=== PATIENT | female | born 1945 | race Caucasian/White ===

== ENCOUNTER 2021-01-31 00:49 | Inpatient (IN) | payer MEDICARE, BC ==
[~2021-01-31] VITALS: Ht 160 cm; Wt 68.9 kg
[2021-01-31] MEDS ORDERED: MAG HYDROX/AL HYDROX/SIMETH 30 ML UDC PO PRN (02:00)
[2021-01-31] MEDS ORDERED: MAGNESIUM HYDROXIDE 30 ML UDC PO PRN (02:00)
[2021-01-31] MEDS ORDERED: BLOOD SUGAR DIAGNOSTIC 1 EACH STRIP IN ONE (02:00)
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
[2021-01-31 02:03] VITALS: BP 150/90
--- NOTE | 2021-01-31 02:05 | NUR ---
RN NOTE PATIENT'S BLOOD SUGAR WAS 84 MG/DL. OFFERED ORANGE JUICE & JELLO, PATIENT TOLERATED WELL. PATIENT IS SLEEPING COMFORTABLY AT THIS TIME. WILL CONTINUE TO MONITOR.
[2021-01-31] MEDS ORDERED: ASPI-1169 PO (02:11)
[2021-01-31] MEDS ORDERED: LORA-259 PO (02:12)
[2021-01-31] MEDS ORDERED: ESCI10TA PO (02:22)
[2021-01-31] MEDS ORDERED: CHOL400T11 PO (02:22)
[2021-01-31] MEDS ORDERED: SPIR25TA6 PO (02:22)
[2021-01-31] MEDS ORDERED: ACET-2605 PO (02:22)
[2021-01-31] MEDS ORDERED: CYAN-51 PO (02:22)
[2021-01-31] MEDS ORDERED: PANT40TA49 PO (02:22)
[2021-01-31] MEDS ORDERED: QUET25TA PO (02:22)
[2021-01-31] MEDS ORDERED: CARV6.252 PO (02:22)
[2021-01-31] MEDS ORDERED: OLMESARTAN PO (02:22)
--- NOTE | 2021-01-31 03:26 | NUR ---
RN NOTE PATIENT IS SLEEPING COMFORTABLY AT THIS TIME. WILL CONTINUE TO MONITOR.
--- NOTE | 2021-01-31 05:54 | NUR ---
RN NOTE: DTR JANES CALLED PATIENT'S DTR JANES CALLED TO GET AN UPDATE. PER DTR JANES, PT. IS A RETIRED NURSE EDUCATOR, REFUSES MEDS, WANTS TO KNOW NAME & DOSE OF EACH MEDICINE, BILATERAL EAR HARD OF HEARING, REFUSES TO WEAR HEARING AIDS, VISION DECLINED, USES WALKER, UNSTEADY, FALL RISK. PER DTR, PATIENT WAS ADMITTED AT [facility] FOR FEW DAYS & DTR TOOK HER BACK HOME AFTER PT. WAS DISCHARGED BUT PT. GOT AGGRESSIVE, AGITATED, HITTING, KICKING AT HOME, FAMILY & INTERNATIONAL SALES MANAGER WAS UNABLE TO PROVIDE CARE TO THE PATIENT DUE TO HER BEHAVIOR. PATIENT WAS TAKEN TO [facility] & THEN TRANSFERRED TO [facility]. PATIENT IS SLEEPING COMFORTABLY AT THIS TIME.
--- NOTE | 2021-01-31 05:59 | NUR ---
RN NOTE: REFUSED MRSA SWAB PATIENT REFUSED MRSA SWAB DESPITE OF RISK & BENEFIT EXPLANATIONS.
[2021-01-31 07:30] LABS: BASOPHILS % (AUTO) 0.5 % (0.0-2.0); HEMATOCRIT 41 % (33-45); HEMOGLOBIN 13.6 g/dL (11.5-14.8); LYMPHOCYTES # (AUTO) 2.6 K/uL (0.8-4.8); LYMPHOCYTES % (AUTO) 31.7 % (20.0-44.0); MEAN CORPUSCULAR HGB CONC 34 g/dl (31.0-36.0); MEAN CORPUSCULAR VOLUME 90 fL (82-100); MONOCYTES # (AUTO) 0.5 K/uL (0.1-1.30); MONOCYTES % (AUTO) 5.7 % (2.0-12.0); NEUTROPHILS # (AUTO) 4.9 K/uL (1.8-8.9); NEUTROPHILS % (AUTO) 60.1 % (43.0-81.0); PLATELET COUNT (AUTO) 182 K/uL (150-450); RED BLOOD CELL COUNT(AUTO) 4.54 MIL/uL (4.0-5.2); WHITE BLOOD COUNT (AUTO) 8.1 K/uL (4.3-11.0)
[2021-01-31 07:44] LABS: CARBON DIOXIDE 23 mmol/L (21-32); CHLORIDE 108 mmol/L (98-107); CHOLESTEROL 217 mg/dL (<200); CREATININE 1.4 mg/dL (0.6-1.3); GLUCOSE 104 mg/dL (74-106); HDL CHOLESTEROL 38 mg/dL (40-60); LDL 152 mg/dL (0-99); POTASSIUM 3.8 mmol/L (3.5-5.1); SODIUM SERUM 141 mmol/L (136-145); TRIGLYCERIDES 123 mg/dL (30-150); UREA NITROGEN, BLOOD 33 mg/dL (7-18)
[2021-01-31 08:00] VITALS: BP 134/88
[2021-01-31 08:48] LABS: ALANINE AMINOTRANSFERASE 21 U/L (12-78); ALBUMIN 3.8 g/dL (3.4-5.0); ALKALINE PHOSPHATASE 61 U/L (46-116); ASPARTATE AMINOTRANSFERASE 25 U/L (15-37); BILIRUBIN,TOTAL 0.8 mg/dL (0.2-1.0)
[2021-01-31 08:53] LABS: CALCIUM, SERUM 10.6 mg/dL (8.5-10.1)
[2021-01-31] MEDS ORDERED: OLMESARTAN 20 MG PO SCH (09:00)
[2021-01-31] MEDS: ASPIRIN 81 MG TAB.CHEW PO SCH (11:28)
[2021-01-31] MEDS: CHOLECALCIFEROL (VITAMIN D 3) 400 UNIT TABLET PO SCH (11:28)
[2021-01-31] MEDS: CYANOCOBALAMIN 500 MCG TABLET PO SCH (11:28)
[2021-01-31] MEDS: PANTOPRAZOLE 40 MG TABLET.DR PO SCH (11:29)
[2021-01-31] MEDS: LOSARTAN POTASSIUM 50 MG TABLET PO SCH (11:29)
[2021-01-31] MEDS: CARVEDILOL 6.25 MG TABLET PO SCH ×2 (11:38→17:41)
[2021-01-31] MEDS: SPIRONOLACTONE 25 MG TABLET PO SCH (11:38)
[2021-01-31 16:00] VITALS: BP 128/78
--- NOTE | 2021-01-31 17:55 | NUR ---
GPS/RN it is ok for pt's son Jonathan Flynn [phone] to visit his mother at [facility] on monday02-01-21 off visiting hours in AM. Salma TOVARproduction supervisor trainee approved as well
[2021-01-31 20:00] VITALS: BP 99/55
[2021-01-31] MEDS: TEMAZEPAM 7.5 MG CAPSULE PO PRN (22:13)
--- NOTE | 2021-01-31 22:22 | NUR ---
GPS RN NOTES: RESTORIL 7.5MG/1CAP GIVEN PO AT 2213.
[2021-02-01 07:51] LABS: BASOPHILS % (AUTO) 0.5 % (0.0-2.0); EOSINOPHILS % (AUTO) 1.5 % (0.0-6.0); HEMATOCRIT 38 % (33-45); HEMOGLOBIN 12.5 g/dL (11.5-14.8); LYMPHOCYTES # (AUTO) 2.5 K/uL (0.8-4.8); LYMPHOCYTES % (AUTO) 27.8 % (20.0-44.0); MEAN CORPUSCULAR HGB CONC 33 g/dl (31.0-36.0); MEAN CORPUSCULAR VOLUME 90 fL (82-100); MONOCYTES # (AUTO) 0.8 K/uL (0.1-1.30); NEUTROPHILS # (AUTO) 5.5 K/uL (1.8-8.9); NEUTROPHILS % (AUTO) 61.2 % (43.0-81.0); PLATELET COUNT (AUTO) 159 K/uL (150-450); RED BLOOD CELL COUNT(AUTO) 4.23 MIL/uL (4.0-5.2); WHITE BLOOD COUNT (AUTO) 9.1 K/uL (4.3-11.0)
[2021-02-01 08:00] VITALS: BP 156/96
[2021-02-01 08:10] LABS: ALANINE AMINOTRANSFERASE 22 U/L (12-78); ALBUMIN 3.9 g/dL (3.4-5.0); ALKALINE PHOSPHATASE 60 U/L (46-116); ASPARTATE AMINOTRANSFERASE 19 U/L (15-37); BILIRUBIN,TOTAL 0.7 mg/dL (0.2-1.0); CALCIUM, SERUM 10.8 mg/dL (8.5-10.1); CARBON DIOXIDE 26 mmol/L (21-32); CHLORIDE 107 mmol/L (98-107); CREATININE 2.1 mg/dL (0.6-1.3); GLUCOSE 109 mg/dL (74-106); MAGNESIUM 2.1 mg/dL (1.8-2.4); PHOSPHORUS 2.6 mg/dL (2.5-4.9); POTASSIUM 3.9 mmol/L (3.5-5.1); SODIUM SERUM 142 mmol/L (136-145); TOTAL PROTEIN, SERUM 6.9 g/dL (6.4-8.2); UREA NITROGEN, BLOOD 45 mg/dL (7-18)
[2021-02-01] MEDS: ASPIRIN 81 MG TAB.CHEW PO SCH (08:14)
[2021-02-01] MEDS: PANTOPRAZOLE 40 MG TABLET.DR PO SCH (08:15)
[2021-02-01] MEDS: LOSARTAN POTASSIUM 50 MG TABLET PO SCH (08:15)
[2021-02-01] MEDS: CARVEDILOL 6.25 MG TABLET PO SCH ×2 (08:15→16:45)
[2021-02-01] MEDS: SPIRONOLACTONE 25 MG TABLET PO SCH (08:15)
[2021-02-01] MEDS: CYANOCOBALAMIN 500 MCG TABLET PO SCH (08:15)
[2021-02-01] MEDS: CHOLECALCIFEROL (VITAMIN D 3) 400 UNIT TABLET PO SCH (08:15)
[2021-02-01 08:19] LABS: THYROID STIMULATING HORMONE 1.201 uIU/mL (0.358-3.74)
[2021-02-01 16:00] VITALS: BP 118/78
[2021-02-01 20:00] VITALS: BP 141/67
[2021-02-01] MEDS: DIVALPROEX SODIUM 250 MG TABLET.DR PO SCH (21:42)
[2021-02-01] MEDS: QUETIAPINE FUMARATE 25 MG TABLET PO SCH (21:44)
--- NOTE | 2021-02-02 06:46 | NUR ---
GPS RN CLOSING NOTES: PATIENT IS CURRENTLY SLEEPING COMFORTABLY IN BED. PATIENT SLEPT 7HRS THIS SHIFT. PATIENT HAS NO S/S OF DISTRESS AT THIS TIME. RESPIRATION EVEN AND UNLABORED WITH EQUAL RISE AND FALL OF THE CHEST, ON ROOM AIR. ALL PATIENT CARE NEEDS HAVE BEEN MET ANTICIPATED. WILL CONTINUE TO MONITOR AND ENDORSE TO AM SHIFT.
[2021-02-02 07:00] LABS: BASOPHILS % (AUTO) 0.5 % (0.0-2.0); EOSINOPHILS % (AUTO) 1.8 % (0.0-6.0); HEMATOCRIT 38 % (33-45); HEMOGLOBIN 12.3 g/dL (11.5-14.8); LYMPHOCYTES # (AUTO) 2.7 K/uL (0.8-4.8); LYMPHOCYTES % (AUTO) 26.5 % (20.0-44.0); MEAN CORPUSCULAR HGB CONC 33 g/dl (31.0-36.0); MEAN CORPUSCULAR VOLUME 90 fL (82-100); MONOCYTES # (AUTO) 0.7 K/uL (0.1-1.30); MONOCYTES % (AUTO) 7.3 % (2.0-12.0); NEUTROPHILS # (AUTO) 6.4 K/uL (1.8-8.9); NEUTROPHILS % (AUTO) 63.9 % (43.0-81.0); PLATELET COUNT (AUTO) 159 K/uL (150-450); RED BLOOD CELL COUNT(AUTO) 4.17 MIL/uL (4.0-5.2)
[2021-02-02 07:25] LABS: ALANINE AMINOTRANSFERASE 22 U/L (12-78); ALBUMIN 3.8 g/dL (3.4-5.0); ALKALINE PHOSPHATASE 60 U/L (46-116); ASPARTATE AMINOTRANSFERASE 20 U/L (15-37); BILIRUBIN,TOTAL 0.7 mg/dL (0.2-1.0); CALCIUM, SERUM 10.9 mg/dL (8.5-10.1); CARBON DIOXIDE 24 mmol/L (21-32); CHLORIDE 109 mmol/L (98-107); CREATININE 1.7 mg/dL (0.6-1.3); GLUCOSE 96 mg/dL (74-106); POTASSIUM 4.1 mmol/L (3.5-5.1); SODIUM SERUM 142 mmol/L (136-145); TOTAL PROTEIN, SERUM 6.6 g/dL (6.4-8.2); UREA NITROGEN, BLOOD 43 mg/dL (7-18)
[2021-02-02 08:00] VITALS: BP 151/77
[2021-02-02] MEDS: CYANOCOBALAMIN 500 MCG TABLET PO SCH (08:29)
[2021-02-02] MEDS: ASPIRIN 81 MG TAB.CHEW PO SCH (08:29)
[2021-02-02] MEDS: SPIRONOLACTONE 25 MG TABLET PO SCH (08:30)
[2021-02-02] MEDS: CHOLECALCIFEROL (VITAMIN D 3) 400 UNIT TABLET PO SCH (08:30)
[2021-02-02] MEDS: CARVEDILOL 6.25 MG TABLET PO SCH ×2 (08:30→16:53)
[2021-02-02] MEDS: DIVALPROEX SODIUM 250 MG TABLET.DR PO SCH ×2 (08:30→21:41)
[2021-02-02] MEDS: PANTOPRAZOLE 40 MG TABLET.DR PO SCH (08:34)
[2021-02-02] MEDS: QUETIAPINE FUMARATE 25 MG TABLET PO SCH ×2 (08:34→21:41)
[2021-02-02] MEDS: AMLODIPINE BESYLATE 5 MG TABLET PO SCH (08:34)
--- NOTE | 2021-02-02 08:44 | NUR ---
WOUND CARE CONSULT: PT PRESENTS VERY SLEEPY WITH DRY ABRASION TO LEFT GREAT TOE, PRESENT ON ADMISSION. NO TENDERNESS, ERYTHEMA OR DRAINAGE NOTED TO LEFT GREAT TOE. RECOMMENDATIONS MADE FOR GENERAL SKIN PROTECTION. DISCUSSED WITH NURSING STAFF. MD IN AGREEMENT WITH PLAN OF CARE.
[2021-02-02] MEDS: Z GUARD REMEDY 2 OZ OINT TP SCH (09:21)
[2021-02-02 16:00] VITALS: BP 127/79
[2021-02-02 20:00] VITALS: BP 117/74
[2021-02-03 08:00] VITALS: BP 150/85
[2021-02-03] MEDS: CARVEDILOL 6.25 MG TABLET PO SCH ×3 (09:04→17:00)
[2021-02-03] MEDS: DIVALPROEX SODIUM 250 MG TABLET.DR PO SCH ×2 (09:04→21:37)
[2021-02-03] MEDS: PANTOPRAZOLE 40 MG TABLET.DR PO SCH (09:04)
[2021-02-03] MEDS: AMLODIPINE BESYLATE 5 MG TABLET PO SCH (09:04)
[2021-02-03] MEDS: CHOLECALCIFEROL (VITAMIN D 3) 400 UNIT TABLET PO SCH (09:05)
[2021-02-03] MEDS: QUETIAPINE FUMARATE 25 MG TABLET PO SCH ×2 (09:05→21:37)
[2021-02-03] MEDS: CYANOCOBALAMIN 500 MCG TABLET PO SCH (09:05)
[2021-02-03] MEDS: ASPIRIN 81 MG TAB.CHEW PO SCH (09:05)
[2021-02-03] MEDS: SPIRONOLACTONE 25 MG TABLET PO SCH (09:06)
[2021-02-03] MEDS: Z GUARD REMEDY 2 OZ OINT TP SCH (09:06)
--- NOTE | 2021-02-03 15:00 | NUR ---
Initial Discharge Plan: LEO was able to verify from pt's daughter, Dina Flynn, , that the pt was previously living at [facility] and at [facility], . Pt's daughter requested for pt to be d/c to a memory care facility at the time of d/c. LEO will work with the pt and the MD regarding appropriate discharge planning. LEO will form a safe and proper discharge plan.
--- NOTE | 2021-02-03 15:48 | NUR ---
Facility contact: LEO spoke to director of [facility], Chasity, , and was notified that the pt can be accepted back to the facility if she is not combative and med compliant. LEO will continue to f/u with Chasity for D/C planning.
[2021-02-03 16:05] VITALS: BP 125/74
[2021-02-03] MEDS ORDERED: OLANZAPINE 10 MG VIAL IM STA (16:54)
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
[2021-02-03 20:10] VITALS: BP 129/88
[2021-02-03 20:24] VITALS: BP 129/88
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
[2021-02-04] MEDS: LORAZEPAM 0.5 MG TABLET PO PRN ×2 (01:15→11:21)
--- NOTE | 2021-02-04 01:17 | NUR ---
RN NOTE: ANXIETY PATIENT IS NOTED TO BE ANXIOUS, RESTLESS, AGITATED, COMBATIVE, PARANOID. ATTEMPTING TO STRIKE & KICK STAFF WHEN APPROACHED TO ASSIST HER WITH ADL CARE OR OFFER HER PO INTAKE. PATIENT HAD PUDDING & WATER WITH LOTS OF ENCOURAGEMENT, TOLERATED WELL. PRN ATIVAN 0.5 MG 1 TAB PO ADMINISTERED. WILL CONTINUE TO MONITOR.
[2021-02-04 08:00] VITALS: BP 111/67
[2021-02-04] MEDS: AMLODIPINE BESYLATE 5 MG TABLET PO SCH (08:29)
[2021-02-04] MEDS: CYANOCOBALAMIN 500 MCG TABLET PO SCH (08:29)
[2021-02-04] MEDS: PANTOPRAZOLE 40 MG TABLET.DR PO SCH (08:29)
[2021-02-04] MEDS: DIVALPROEX SODIUM 250 MG TABLET.DR PO SCH ×2 (08:29→21:24)
[2021-02-04] MEDS: CHOLECALCIFEROL (VITAMIN D 3) 400 UNIT TABLET PO SCH (08:30)
[2021-02-04] MEDS: CARVEDILOL 6.25 MG TABLET PO SCH ×2 (08:30→16:19)
[2021-02-04] MEDS: ASPIRIN 81 MG TAB.CHEW PO SCH (08:30)
[2021-02-04] MEDS: SPIRONOLACTONE 25 MG TABLET PO SCH (08:30)
[2021-02-04] MEDS: QUETIAPINE FUMARATE 25 MG TABLET PO SCH ×3 (08:31→21:24)
[2021-02-04] MEDS: CINACALCET HCL 30 MG TABLET PO SCH (08:32)
[2021-02-04] MEDS: Z GUARD REMEDY 2 OZ OINT TP SCH (10:00)
--- NOTE | 2021-02-04 11:21 | NUR ---
Pt. is anxious and agitated and Ativan 0.5 mg po prn given.
[2021-02-04 16:00] VITALS: BP 123/66
[2021-02-04 20:00] VITALS: BP 112/75
[2021-02-05 08:00] VITALS: BP_SYST 109; BP_SYST 143; BP_DIAS 65; BP_DIAS 72
[2021-02-05] MEDS: CINACALCET HCL 30 MG TABLET PO SCH (08:09)
[2021-02-05] MEDS: Z GUARD REMEDY 2 OZ OINT TP SCH (08:10)
[2021-02-05] MEDS: CHOLECALCIFEROL (VITAMIN D 3) 400 UNIT TABLET PO SCH (08:10)
[2021-02-05] MEDS: DIVALPROEX SODIUM 250 MG TABLET.DR PO SCH ×2 (08:10→20:56)
[2021-02-05] MEDS: CYANOCOBALAMIN 500 MCG TABLET PO SCH (08:10)
[2021-02-05] MEDS: ASPIRIN 81 MG TAB.CHEW PO SCH (08:10)
[2021-02-05] MEDS: PANTOPRAZOLE 40 MG TABLET.DR PO SCH (08:10)
[2021-02-05] MEDS: QUETIAPINE FUMARATE 25 MG TABLET PO SCH ×3 (08:12→21:42)
[2021-02-05 08:41] LABS: CARBON DIOXIDE 27 mmol/L (21-32); CHLORIDE 108 mmol/L (98-107); CREATININE 1.6 mg/dL (0.6-1.3); GLUCOSE 104 mg/dL (74-106); POTASSIUM 4.2 mmol/L (3.5-5.1); SODIUM SERUM 143 mmol/L (136-145); UREA NITROGEN, BLOOD 44 mg/dL (7-18)
[2021-02-05 08:48] LABS: CALCIUM, SERUM 10.4 mg/dL (8.5-10.1)
[2021-02-05] MEDS: CARVEDILOL 6.25 MG TABLET PO SCH ×2 (09:00→18:03)
[2021-02-05] MEDS: SPIRONOLACTONE 25 MG TABLET PO SCH (09:00)
[2021-02-05] MEDS: AMLODIPINE BESYLATE 5 MG TABLET PO SCH (09:00)
--- NOTE | 2021-02-05 12:53 | NUR ---
GPS/RN 1300 MEDS NOT ADMINISTERED D/T PT'S EXCESSIVE SLEEPINESS. MADE AWARE
--- NOTE | 2021-02-05 14:03 | NUR ---
Probable cause hearing: Pt.'s 5250 hold was upheld on the grounds of Gravely Disabled.
[2021-02-05 16:00] VITALS: BP 137/87
[2021-02-05 20:03] VITALS: BP_SYST 101; BP_SYST 105; BP_DIAS 52; BP_DIAS 63
[2021-02-06] MEDS: Z GUARD REMEDY 2 OZ OINT TP PRN (06:59)
[2021-02-06 08:00] VITALS: BP 152/77
[2021-02-06] MEDS: AMLODIPINE BESYLATE 5 MG TABLET PO SCH (10:51)
[2021-02-06] MEDS: CARVEDILOL 6.25 MG TABLET PO SCH ×2 (10:51→17:00)
[2021-02-06] MEDS: SPIRONOLACTONE 25 MG TABLET PO SCH (10:51)
[2021-02-06] MEDS: CINACALCET HCL 30 MG TABLET PO SCH (10:52)
[2021-02-06] MEDS: CHOLECALCIFEROL (VITAMIN D 3) 400 UNIT TABLET PO SCH (10:52)
[2021-02-06] MEDS: ASPIRIN 81 MG TAB.CHEW PO SCH (10:52)
[2021-02-06] MEDS: QUETIAPINE FUMARATE 25 MG TABLET PO SCH ×3 (10:52→21:13)
[2021-02-06] MEDS: PANTOPRAZOLE 40 MG TABLET.DR PO SCH (10:52)
[2021-02-06] MEDS: DIVALPROEX SODIUM 250 MG TABLET.DR PO SCH ×2 (10:52→21:13)
[2021-02-06] MEDS: CYANOCOBALAMIN 500 MCG TABLET PO SCH (10:57)
[2021-02-06] MEDS: Z GUARD REMEDY 2 OZ OINT TP SCH (11:56)
[2021-02-06] MEDS: ACETAMINOPHEN 325 MG TABLET PO PRN (13:44)
--- NOTE | 2021-02-06 13:50 | NUR ---
GIVEN TYLENOL FOR GEN'L PAIN.DTR. HERE AND TOOK PHONE NUMBER TO HAVE DR. OSPINA CALL HER.
--- NOTE | 2021-02-06 15:44 | NUR ---
DR. OSPINA INFORMED TO CALL DTR.
[2021-02-06 16:00] VITALS: BP 111/72
[2021-02-06 20:00] VITALS: BP 127/47
[2021-02-06 20:28] VITALS: BP 127/47
--- NOTE | 2021-02-06 22:24 | NUR ---
RN NOTES: -ASLEEP FROM 8PM TO 10PM AT SHORT INTERVALS, THEN SHE WAKE UP TO PEE, ASSISTED BY PATIENT CARE ASSISTANT TO THE BATHROOM, AFTER THAT SNACKS GIVEN,STILL AWAKE, FALL PRECAUTION OBSERVED.
--- NOTE | 2021-02-07 04:41 | NUR ---
RN NOTES: AWAKEN BY ROOM MATES LOUD TALK, SHE IS TRYING TO GET UP FROM THE BED, REDIRECTED AND ENCOURAGE TO LIE DOWN BACK IN BED.FALL AND SAFETY PRECAUTION OBSERVED.
[2021-02-07 08:00] VITALS: BP 154/84
[2021-02-07 08:55] LABS: CALCIUM, SERUM 10.1 mg/dL (8.5-10.1); CARBON DIOXIDE 26 mmol/L (21-32); CHLORIDE 107 mmol/L (98-107); CREATININE 1.8 mg/dL (0.6-1.3); GLUCOSE 93 mg/dL (74-106); POTASSIUM 4.3 mmol/L (3.5-5.1); SODIUM SERUM 140 mmol/L (136-145); UREA NITROGEN, BLOOD 44 mg/dL (7-18)
[2021-02-07] MEDS: QUETIAPINE FUMARATE 25 MG TABLET PO SCH ×2 (09:00→22:13)
[2021-02-07] MEDS: ASPIRIN 81 MG TAB.CHEW PO SCH (09:27)
[2021-02-07] MEDS: SPIRONOLACTONE 25 MG TABLET PO SCH (09:27)
[2021-02-07] MEDS: DIVALPROEX SODIUM 250 MG TABLET.DR PO SCH ×2 (09:28→21:03)
[2021-02-07] MEDS: CARVEDILOL 6.25 MG TABLET PO SCH ×2 (09:28→16:35)
[2021-02-07] MEDS: AMLODIPINE BESYLATE 5 MG TABLET PO SCH (09:29)
[2021-02-07] MEDS: PANTOPRAZOLE 40 MG TABLET.DR PO SCH (09:29)
[2021-02-07] MEDS: CYANOCOBALAMIN 500 MCG TABLET PO SCH (09:29)
[2021-02-07] MEDS: CHOLECALCIFEROL (VITAMIN D 3) 400 UNIT TABLET PO SCH (09:29)
[2021-02-07] MEDS: CINACALCET HCL 30 MG TABLET PO SCH (09:29)
[2021-02-07] MEDS: Z GUARD REMEDY 2 OZ OINT TP SCH (09:31)
[2021-02-07] MEDS: LORAZEPAM 0.5 MG TABLET PO PRN (13:23)
--- NOTE | 2021-02-07 14:22 | NUR ---
[address] VENDOR Notes: Patient was restless in activity room and stated she felt worried and overwhelmed. Offered patient PRN Ativan 0.5 mg ,patient accepted it @ 1323. 1 hour reassess done @ 1423 patient is calm, comfortable , watching T.V in activity room and eating ice cream.
[2021-02-07 16:00] VITALS: BP 143/63
[2021-02-07 20:00] VITALS: BP 128/66
[2021-02-08] MEDS: Z GUARD REMEDY 2 OZ OINT TP PRN ×2 (05:15→08:44)
[2021-02-08 07:43] LABS: CALCIUM, SERUM 9.7 mg/dL (8.5-10.1); CARBON DIOXIDE 26 mmol/L (21-32); CHLORIDE 108 mmol/L (98-107); CREATININE 1.4 mg/dL (0.6-1.3); GLUCOSE 92 mg/dL (74-106); SODIUM SERUM 142 mmol/L (136-145); UREA NITROGEN, BLOOD 36 mg/dL (7-18)
[2021-02-08 08:00] VITALS: BP 134/95
[2021-02-08] MEDS: QUETIAPINE FUMARATE 25 MG TABLET PO SCH ×2 (08:58→21:32)
[2021-02-08] MEDS: CHOLECALCIFEROL (VITAMIN D 3) 400 UNIT TABLET PO SCH (08:58)
[2021-02-08] MEDS: CINACALCET HCL 30 MG TABLET PO SCH (08:58)
[2021-02-08] MEDS: CYANOCOBALAMIN 500 MCG TABLET PO SCH (08:58)
[2021-02-08] MEDS: DIVALPROEX SODIUM 250 MG TABLET.DR PO SCH ×2 (08:58→21:32)
[2021-02-08] MEDS: ASPIRIN 81 MG TAB.CHEW PO SCH (08:58)
[2021-02-08] MEDS: PANTOPRAZOLE 40 MG TABLET.DR PO SCH (08:58)
[2021-02-08] MEDS: SPIRONOLACTONE 25 MG TABLET PO SCH (08:58)
[2021-02-08] MEDS: AMLODIPINE BESYLATE 5 MG TABLET PO SCH (08:59)
[2021-02-08] MEDS: CARVEDILOL 6.25 MG TABLET PO SCH ×2 (08:59→16:43)
[2021-02-08] MEDS: Z GUARD REMEDY 2 OZ OINT TP SCH (09:07)
--- NOTE | 2021-02-08 14:07 | NUR ---
D/C Plan Update: SW notified by pt.'s daughter, Dina Flynn [phone] that [place] [facility] from [facility], feel that the pt. needs higher level of care. Family stated they would like the pt. to be discharged to a memory care unit. Noted. SW will follow up.
--- NOTE | 2021-02-08 14:39 | NUR ---
Memory Care Refferal: LEO faxed clinicals to [facility], [place] [address]; ] FAX: [phone] per pt.'s daughter, Dina Suarez [phone] request.
[2021-02-08 16:00] VITALS: BP 103/71
[2021-02-08 20:00] VITALS: BP 138/94
[2021-02-08] MEDS: TEMAZEPAM 7.5 MG CAPSULE PO PRN (22:39)
--- NOTE | 2021-02-08 22:39 | NUR ---
Patient was given Restoril PRN for sleep, which appears to be effective.
[2021-02-09 08:00] VITALS: BP 133/79
[2021-02-09] MEDS: CYANOCOBALAMIN 500 MCG TABLET PO SCH (08:48)
[2021-02-09] MEDS: SPIRONOLACTONE 25 MG TABLET PO SCH (08:48)
[2021-02-09] MEDS: CARVEDILOL 6.25 MG TABLET PO SCH ×2 (08:49→17:00)
[2021-02-09] MEDS: PANTOPRAZOLE 40 MG TABLET.DR PO SCH (08:49)
[2021-02-09] MEDS: DIVALPROEX SODIUM 250 MG TABLET.DR PO SCH ×2 (08:49→21:13)
[2021-02-09] MEDS: CHOLECALCIFEROL (VITAMIN D 3) 400 UNIT TABLET PO SCH (08:49)
[2021-02-09] MEDS: QUETIAPINE FUMARATE 25 MG TABLET PO SCH ×2 (08:49→21:56)
[2021-02-09] MEDS: AMLODIPINE BESYLATE 5 MG TABLET PO SCH (08:49)
[2021-02-09] MEDS: ASPIRIN 81 MG TAB.CHEW PO SCH (08:49)
[2021-02-09] MEDS: CINACALCET HCL 30 MG TABLET PO SCH (08:49)
[2021-02-09] MEDS: Z GUARD REMEDY 2 OZ OINT TP SCH (08:49)
--- NOTE | 2021-02-09 09:00 | NUR ---
RN NOTE- PT CONFUSED INTERACTIVE ORIENTED TO PERSON ONLY, NEEDS ATTENDED, REDNESS TO SACRAL AREA THOUGH ZGUARD IN USE. WOUND CARE SEEING PT , MED COMPLIANT PO INTAKE GOOD
--- NOTE | 2021-02-09 11:24 | NUR ---
WOUND CARE CONSULT: PT PRESENTS WITH SOME REDNESS/RASH TO GROIN FOLDS AND BILATERAL BUTTOCKS RASH/REDNESS. RECOMMENDATIONS MADE FOR SKIN CARE AND PROTECTION. DISCUSSED WITH NURSING STAFF. MD IN AGREEMENT WITH PLAN OF CARE.
--- NOTE | 2021-02-09 14:30 | NUR ---
D/C Plan Update: LEO notified by pt.'s daughter, Dina Flynn [phone] that she would liek tp to be referred to a Acute Rehab Unit for further Physical therapy. SW will follow up accordingly.
[2021-02-09 16:00] VITALS: BP 114/62
--- NOTE | 2021-02-09 16:40 | NUR ---
Rehab Referrals: Per pt.'s daughter's request, SW faxed referrals to [facility][ [address] [place] [address] tel: FAX: [phone] [facility] [[address] [place] [address] tel: FAX: [phone] [facility] [[address] [facility] [place] [address] TEL: FAX:[phone]
[2021-02-09] MEDS: CLOTRIMAZOLE 1% 15 GM TUBE TP SCH (17:01)
[2021-02-09 20:00] VITALS: BP 121/77
[2021-02-09 20:10] VITALS: BP 121/77
[2021-02-10] MEDS: Z GUARD REMEDY 2 OZ OINT TP PRN (03:24)
[2021-02-10 08:00] VITALS: BP 152/86
[2021-02-10] MEDS: ASPIRIN 81 MG TAB.CHEW PO SCH (09:07)
[2021-02-10] MEDS: CINACALCET HCL 30 MG TABLET PO SCH (09:07)
[2021-02-10] MEDS: DIVALPROEX SODIUM 250 MG TABLET.DR PO SCH ×2 (09:07→21:47)
[2021-02-10] MEDS: QUETIAPINE FUMARATE 25 MG TABLET PO SCH ×2 (09:07→21:48)
[2021-02-10] MEDS: CYANOCOBALAMIN 500 MCG TABLET PO SCH (09:07)
[2021-02-10] MEDS: CARVEDILOL 6.25 MG TABLET PO SCH ×2 (09:07→16:57)
[2021-02-10] MEDS: SPIRONOLACTONE 25 MG TABLET PO SCH (09:08)
[2021-02-10] MEDS: Z GUARD REMEDY 2 OZ OINT TP SCH (09:08)
[2021-02-10] MEDS: AMLODIPINE BESYLATE 5 MG TABLET PO SCH (09:08)
[2021-02-10] MEDS: CHOLECALCIFEROL (VITAMIN D 3) 400 UNIT TABLET PO SCH (09:08)
[2021-02-10] MEDS: PANTOPRAZOLE 40 MG TABLET.DR PO SCH (09:08)
[2021-02-10] MEDS: CLOTRIMAZOLE 1% 15 GM TUBE TP SCH ×2 (09:40→17:10)
[2021-02-10] MEDS: LORAZEPAM 0.5 MG TABLET PO PRN (12:05)
--- NOTE | 2021-02-10 12:06 | NUR ---
RN NOTE: ANXIETY PT EXHIBITING INCREASED ANXIETY AND AGITATION. YELLING, "HELP, HELP". MEDICATED WITH ATIVAN 0.5 MG PO PRN.
[2021-02-10 16:00] VITALS: BP 140/92
--- NOTE | 2021-02-10 16:01 | NUR ---
D/C Plan Update: LEO notified by pt.'s daughter, Dina Flynn [phone] that she visited the rehabs SW referred pt. to and she did not like any of them. Per Dina Uriostegui she would like the pt. to be discharged to [facility] [phone]. Per Dina. the pt. will be seen there by psychiatrist, Dr. Getachew Valderrama [phone] and by the PCP at facility. Noted SW called [facility] unit [phone] and left Ainsley WYATT a voicemail with call back number to arrange discharge date.
[2021-02-10 20:05] VITALS: BP 112/80
[2021-02-11 08:00] VITALS: BP 129/84
[2021-02-11] MEDS: CINACALCET HCL 30 MG TABLET PO SCH (08:15)
[2021-02-11] MEDS: CHOLECALCIFEROL (VITAMIN D 3) 400 UNIT TABLET PO SCH (08:15)
[2021-02-11] MEDS: CARVEDILOL 6.25 MG TABLET PO SCH ×2 (08:15→16:27)
[2021-02-11] MEDS: PANTOPRAZOLE 40 MG TABLET.DR PO SCH (08:15)
[2021-02-11] MEDS: ASPIRIN 81 MG TAB.CHEW PO SCH (08:15)
[2021-02-11] MEDS: DIVALPROEX SODIUM 250 MG TABLET.DR PO SCH ×2 (08:16→09:00)
[2021-02-11] MEDS: QUETIAPINE FUMARATE 25 MG TABLET PO SCH ×2 (08:16→21:07)
[2021-02-11] MEDS: AMLODIPINE BESYLATE 5 MG TABLET PO SCH (08:16)
[2021-02-11] MEDS: CYANOCOBALAMIN 500 MCG TABLET PO SCH (08:16)
[2021-02-11] MEDS: SPIRONOLACTONE 25 MG TABLET PO SCH (08:16)
[2021-02-11] MEDS: LORAZEPAM 0.5 MG TABLET PO PRN (08:52)
--- NOTE | 2021-02-11 09:42 | NUR ---
D/C Planning: LEO called [facility] [[address] [place] [address] ] and spoke to LEO Cervantes [phone] (cell) to discuss referral. Helen stated she and her team will review the pt.'s clinicals and notify SW if they will come assess pt. for possible admission. SW will remain available as needed. Addendum: 02/11/21 at 1137 by JOHN BAILEY Disregard this note- It is for different pt.
[2021-02-11] MEDS: Z GUARD REMEDY 2 OZ OINT TP SCH (09:51)
[2021-02-11] MEDS: CLOTRIMAZOLE 1% 15 GM TUBE TP SCH ×2 (09:52→17:08)
--- NOTE | 2021-02-11 10:52 | NUR ---
Pt. spit the Depakote po and will notify psychiatrist
[2021-02-11 16:00] VITALS: BP 142/70
--- NOTE | 2021-02-11 16:25 | NUR ---
D/C plannin am-SW received call from pt.'s daughter, Dina Flynn [phone] stating that she was notified by [facility] [phone] that they cannot accept the pt. as they feel the pt. needs a higher level of care. Pt.'s daughter stated that she does not feel Seroquel medication is working for the pt. and would like a medication change. SW notified Dr. Walker who stated Dr. Griffin who is covering for Dr. Turpin will adjust the pt.'s medications if needed. 1600-SW educated Dina Dementia is a progressive illness and what that looks like. SW recommended family look into [facility] as they may be equipped to handle behaviors and provide appropriate care for pt. Dina was receptive and stated she will call them. SW will follow up as needed.
[2021-02-11 20:40] VITALS: BP 125/76
[2021-02-11] MEDS: DIVALPROEX SODIUM 125 MG CAP.SPRINK PO SCH (21:06)
[2021-02-12 08:00] VITALS: BP 147/73
[2021-02-12] MEDS: CINACALCET HCL 30 MG TABLET PO SCH (08:11)
[2021-02-12] MEDS: CHOLECALCIFEROL (VITAMIN D 3) 400 UNIT TABLET PO SCH (08:12)
[2021-02-12] MEDS: DIVALPROEX SODIUM 125 MG CAP.SPRINK PO SCH ×2 (08:12→20:41)
[2021-02-12] MEDS: QUETIAPINE FUMARATE 25 MG TABLET PO SCH (08:12)
[2021-02-12] MEDS: PANTOPRAZOLE 40 MG TABLET.DR PO SCH (08:13)
[2021-02-12] MEDS: SPIRONOLACTONE 25 MG TABLET PO SCH (08:13)
[2021-02-12] MEDS: CARVEDILOL 6.25 MG TABLET PO SCH ×2 (08:13→16:33)
[2021-02-12] MEDS: AMLODIPINE BESYLATE 5 MG TABLET PO SCH (08:13)
[2021-02-12] MEDS: ASPIRIN 81 MG TAB.CHEW PO SCH (08:13)
[2021-02-12] MEDS: CYANOCOBALAMIN 500 MCG TABLET PO SCH (08:14)
[2021-02-12] MEDS: CLOTRIMAZOLE 1% 15 GM TUBE TP SCH ×2 (08:34→16:41)
[2021-02-12] MEDS: Z GUARD REMEDY 2 OZ OINT TP SCH (08:34)
--- NOTE | 2021-02-12 11:15 | NUR ---
D/C Planing: LEO got a call from Radha Richmond [phone] from [facility] stating the pt.'s daughter has inquired about possible admission to their facility. Noted. Radha requested clinicals to be faxed to [phone]. Radha stated she would want to come assess the pt. this afternoon or tomorrow morning. LEO notified unit supervisor. Per Radha, if they accept pt. they will require : PCR COVID test Form 602 physician's report
[2021-02-12] MEDS: ACETAMINOPHEN 325 MG TABLET PO PRN ×2 (14:35→22:52)
--- NOTE | 2021-02-12 14:36 | NUR ---
SS Note: SW spoke to pt.'s daughter, Dina Flynn [phone] who stated she is happy to have spoken with Dr. Griffin about adjusting the pt.'s medications accordingly. Dina stated she is hoping [facility] will accept the pt. SW notified her they will assess the pt. this afternoon or tomorrow morning. Dina is agreeable to plan. SW will follow up as needed.
--- NOTE | 2021-02-12 14:40 | NUR ---
RN-NOTES PATIENT C/O HEADACHE AND REQUESTING TYLENOL.TYLENOL 650MG P.O GIVEN PRN ORDER. WILL CONT. MONITORING FOR SAFETY .
[2021-02-12 16:00] VITALS: BP 120/60
[2021-02-12] MEDS: OLANZAPINE 2.5 MG TABLET PO SCH (16:32)
--- NOTE | 2021-02-12 19:21 | NUR ---
RN-NOTES PATIENT IN THE HALLWAY UP IN THE SUKUMAR CHAIR,INTERACTING WITH HER VISITOR.NO ACUTE DISTRESS NOTED. ALL NEEDS ATTENDED AND ANTICIPATED. WILL ENDORSED TO INCOMING NURSE FOR MONITORING AND CONTINUITY OF CARE.
[2021-02-12] MEDS: LORAZEPAM 0.5 MG TABLET PO PRN (21:24)
--- NOTE | 2021-02-12 21:26 | NUR ---
[facility]PS RN NOTES: PATIENT IS ANXIOUS, RESTLESS AND YELLING. REFUSING REDIRECTION. ATIVAN 0.5MG/1TAB GIVEN PO PRN ORDERED AT 2123. WILL CONTINUE TO MONITOR.
[2021-02-12 21:35] VITALS: BP 133/92
[2021-02-12] MEDS: TEMAZEPAM 7.5 MG CAPSULE PO PRN (22:32)
--- NOTE | 2021-02-12 22:32 | NUR ---
GPS RN NOTES: RESTORIL 7.5MG/1CAP GIVEN PO FOR SLEEP AT 2232. WILL CONTINUE TO MONITOR.
--- NOTE | 2021-02-12 22:54 | NUR ---
TYLENOL 650MG GIVEN PO FOR LOWER BACK PAIN AT 2252. WILL CONTINUE TO MONITOR.
[2021-02-13 08:00] VITALS: BP 130/88
[2021-02-13] MEDS: OLANZAPINE 2.5 MG TABLET PO SCH ×2 (08:03→16:48)
[2021-02-13] MEDS: ASPIRIN 81 MG TAB.CHEW PO SCH (08:03)
[2021-02-13] MEDS: CHOLECALCIFEROL (VITAMIN D 3) 400 UNIT TABLET PO SCH (08:04)
[2021-02-13] MEDS: PANTOPRAZOLE 40 MG TABLET.DR PO SCH (08:04)
[2021-02-13] MEDS: DIVALPROEX SODIUM 125 MG CAP.SPRINK PO SCH ×2 (08:04→20:44)
[2021-02-13] MEDS: CYANOCOBALAMIN 500 MCG TABLET PO SCH (08:04)
[2021-02-13] MEDS: CINACALCET HCL 30 MG TABLET PO SCH (08:04)
[2021-02-13] MEDS: CARVEDILOL 6.25 MG TABLET PO SCH ×2 (08:04→16:48)
[2021-02-13] MEDS: SPIRONOLACTONE 25 MG TABLET PO SCH (08:04)
[2021-02-13] MEDS: AMLODIPINE BESYLATE 5 MG TABLET PO SCH (08:05)
[2021-02-13] MEDS: Z GUARD REMEDY 2 OZ OINT TP SCH (08:06)
[2021-02-13] MEDS: CLOTRIMAZOLE 1% 15 GM TUBE TP SCH ×2 (08:06→16:49)
[2021-02-13] MEDS: LORAZEPAM 0.5 MG TABLET PO PRN (10:00)
--- NOTE | 2021-02-13 10:00 | NUR ---
RN-NOTES NOTED PATIENT SCREAMING AND YELLING. STATED" I SEE AN ANIMAL (LEOPARD) HERE". REASSURED ,REDIRECTED AND REORIENTED PATIENT.ATIVAN 0.5MG P.O GIVEN PRN ORDER. WILL CONT. MONITORING FOR SAFETY AND BEHAVIOR.
--- NOTE | 2021-02-13 11:00 | NUR ---
RN-NOTES PATIENT STILL IN THE DAY ROOM,AWAKE,ALERT CALM,NO ACUTE DISTRESS NOTED.
[2021-02-13 16:00] VITALS: BP 122/83
[2021-02-13 20:09] VITALS: BP 107/53
[2021-02-13 20:14] VITALS: BP 107/53
--- NOTE | 2021-02-13 20:27 | NUR ---
RN NOTE PATIENT WAS ASSISTED TO BED AFTER THE BEGINNING OF SPEAR FISHER, PATIENT REMAINED IN BED ONLY FOR 45 MINUTES & ATTEMPTED TO GET OUT OF BED UNASSISTED, TRIED TO ENCOURAGE HER TO STAY IN BED TO REST BUT PATIENT KEPT GETTING OUT OF BED. PATIENT IS VERY CONFUSED 7 UNABLE TO FOLLOW DIRECTIONS AT THIS TIME. ASSISTED PATIENT BACK TO SUKUMAR CHAIR FOR SAFETY & TO PREVENT FALL. WILL CONTINUE TO MONITOR FOR SAFETY & BEHAVIOR.
[2021-02-13] MEDS: Z GUARD REMEDY 2 OZ OINT TP PRN (20:44)
[2021-02-13] MEDS: TEMAZEPAM 7.5 MG CAPSULE PO PRN (22:30)
--- NOTE | 2021-02-13 22:30 | NUR ---
RN NOTE: INSOMNIA PATIENT IS UNABLE TO SLEEP, RESTLESS & ANXIOUS. PRN RESTORIL 7.5 MG 1 CAP PO ADMINISTERED. WILL CONTINUE TO MONITOR.
--- NOTE | 2021-02-14 06:55 | NUR ---
RN NOTE PATIENT SLEPT FOR 5 HOURS & WAS IN & OUT OF HER BED INTERMITTENTLY AT NIGHT. PATIENT IS VERY CONFUSED & FORGETFUL, HIGH FALL RISK, UNABLE TO FOLLOW DIRECTIONS & ATTEMPTS TO GET OUT OF BED UNASSISTED, UNSTEADY. BED ALARM KEPT ON. MONITORED CLOSELY, FREQUENT VISUAL CHECKS. KEPT CLEAN & DRY, Z GUARD APPLIED ORDERED. OFFERED JELLO TO THE PATIENT AT THIS TIME & TOLERATED WELL. WILL ENDORSE TO AM RN FOR CONTINUITY OF CARE.
[2021-02-14 08:00] VITALS: BP 131/81
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
--- NOTE | 2021-02-14 08:35 | NUR ---
RN NOTE PATIENT WAS GETTING AGITATED AND ANXIOUS, PROVIDED A CALM AND SAFE ENVIRONMENT. PATIENT BEGAN TO GET RESTLESS, ADMINISTERED PRN ATIVAN ORDERED. WILL CONTINUE TO MONITOR PATIENT.
[2021-02-14] MEDS: LORAZEPAM 0.5 MG TABLET PO PRN (08:36)
[2021-02-14] MEDS: PANTOPRAZOLE 40 MG TABLET.DR PO SCH (09:24)
[2021-02-14] MEDS: DIVALPROEX SODIUM 125 MG CAP.SPRINK PO SCH ×2 (09:24→21:26)
[2021-02-14] MEDS: ASPIRIN 81 MG TAB.CHEW PO SCH (09:24)
[2021-02-14] MEDS: CHOLECALCIFEROL (VITAMIN D 3) 400 UNIT TABLET PO SCH (09:24)
[2021-02-14] MEDS: CYANOCOBALAMIN 500 MCG TABLET PO SCH (09:24)
[2021-02-14] MEDS: SPIRONOLACTONE 25 MG TABLET PO SCH (09:24)
[2021-02-14] MEDS: CINACALCET HCL 30 MG TABLET PO SCH (09:24)
[2021-02-14] MEDS: OLANZAPINE 2.5 MG TABLET PO SCH ×2 (09:24→17:05)
[2021-02-14] MEDS: CLOTRIMAZOLE 1% 15 GM TUBE TP SCH ×2 (09:27→17:07)
[2021-02-14] MEDS: Z GUARD REMEDY 2 OZ OINT TP SCH (09:28)
[2021-02-14] MEDS: CARVEDILOL 6.25 MG TABLET PO SCH ×2 (09:29→17:05)
[2021-02-14] MEDS: AMLODIPINE BESYLATE 5 MG TABLET PO SCH (09:29)
[2021-02-14 16:00] VITALS: BP 136/89
[2021-02-14 19:30] LABS: ALANINE AMINOTRANSFERASE 19 U/L (12-78); ALBUMIN 3.5 g/dL (3.4-5.0); ALKALINE PHOSPHATASE 64 U/L (46-116); ASPARTATE AMINOTRANSFERASE 9 U/L (15-37); BILIRUBIN,TOTAL 0.3 mg/dL (0.2-1.0); CALCIUM, SERUM 9.9 mg/dL (8.5-10.1); CARBON DIOXIDE 27 mmol/L (21-32); CHLORIDE 109 mmol/L (98-107); CREATININE 1.8 mg/dL (0.6-1.3); GLUCOSE 115 mg/dL (74-106); POTASSIUM 4.2 mmol/L (3.5-5.1); SODIUM SERUM 145 mmol/L (136-145); TOTAL PROTEIN, SERUM 6.8 g/dL (6.4-8.2); UREA NITROGEN, BLOOD 41 mg/dL (7-18)
[2021-02-14 19:42] LABS: VALPROIC ACID 53 ug/mL (50-100)
[2021-02-14 19:46] LABS: BASOPHILS # (AUTO) 0.1 K/uL (0.0-0.2); BASOPHILS % (AUTO) 0.6 % (0.0-2.0); EOSINOPHILS % (AUTO) 1.4 % (0.0-6.0); HEMATOCRIT 35 % (33-45); HEMOGLOBIN 11.7 g/dL (11.5-14.8); LYMPHOCYTES # (AUTO) 2.2 K/uL (0.8-4.8); LYMPHOCYTES % (AUTO) 25.9 % (20.0-44.0); MEAN CORPUSCULAR HGB CONC 33 g/dl (31.0-36.0); MEAN CORPUSCULAR VOLUME 90 fL (82-100); MONOCYTES # (AUTO) 0.6 K/uL (0.1-1.30); MONOCYTES % (AUTO) 7.4 % (2.0-12.0); NEUTROPHILS # (AUTO) 5.6 K/uL (1.8-8.9); NEUTROPHILS % (AUTO) 64.7 % (43.0-81.0); PLATELET COUNT (AUTO) 187 K/uL (150-450); RED BLOOD CELL COUNT(AUTO) 3.93 MIL/uL (4.0-5.2); WHITE BLOOD COUNT (AUTO) 8.7 K/uL (4.3-11.0)
[2021-02-14 20:00] VITALS: BP 133/78
[2021-02-14 20:31] LABS: MAGNESIUM 2.1 mg/dL (1.8-2.4); PHOSPHORUS 2.9 mg/dL (2.5-4.9)
[2021-02-14] MEDS: ACETAMINOPHEN 325 MG TABLET PO PRN (20:59)
--- NOTE | 2021-02-14 21:00 | NUR ---
RN NOTE: PAIN PATIENT C/O GENERALIZED BODY PAIN, UNABLE TO SCALE DUE TO CONFUSION. PRN TYLENOL 650 MG PO ADMINISTERED. SNACK WAS GIVEN TO THE PATIENT & TOLERATED WELL. WILL CONTINUE TO MONITOR.
[2021-02-14] MEDS: TEMAZEPAM 7.5 MG CAPSULE PO PRN (22:44)
--- NOTE | 2021-02-14 22:45 | NUR ---
RN NOTE: INSOMNIA PATIENT IS UNABLE TO SLEEP, RESTLESS & ANXIOUS. PRN RESTORIL 7.5 MG 1 CAP PO ADMINISTERED. WILL CONTINUE TO MONITOR.
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
[2021-02-15] MEDS: Z GUARD REMEDY 2 OZ OINT TP PRN (03:28)
[2021-02-15] MEDS: LORAZEPAM 0.5 MG TABLET PO PRN ×3 (03:29→21:05)
--- NOTE | 2021-02-15 03:31 | NUR ---
RN NOTE: AGITATION PATIENT IS AGITATED, AGGRESSIVE, RESTLESS, COMBATIVE, KICKING/HITTING STAFF, CRYING, LOUD, NON REDIRECTABLE. PRN ATIVAN 0.5 MG 1 TAB PO ADMINISTERED. PATIENT REFUSED TO STAY IN BED, ATTEMPTING TO GET OUT OF BED, UNSTEADY, ASSISTED TO SUKUMAR CHAIR. SNACK GIVEN & TOLERATED WELL. WILL CONTINUE TO MONITOR.
[2021-02-15 08:22] VITALS: BP 145/57
[2021-02-15] MEDS: AMLODIPINE BESYLATE 5 MG TABLET PO SCH (09:00)
[2021-02-15] MEDS: CARVEDILOL 6.25 MG TABLET PO SCH ×2 (09:00→16:36)
[2021-02-15] MEDS: ASPIRIN 81 MG TAB.CHEW PO SCH (09:29)
[2021-02-15] MEDS: Z GUARD REMEDY 2 OZ OINT TP SCH (09:29)
[2021-02-15] MEDS: CINACALCET HCL 30 MG TABLET PO SCH (09:29)
[2021-02-15] MEDS: DIVALPROEX SODIUM 125 MG CAP.SPRINK PO SCH ×2 (09:29→21:10)
[2021-02-15] MEDS: OLANZAPINE 2.5 MG TABLET PO SCH ×2 (09:29→16:35)
[2021-02-15] MEDS: PANTOPRAZOLE 40 MG TABLET.DR PO SCH (09:30)
[2021-02-15] MEDS: CHOLECALCIFEROL (VITAMIN D 3) 400 UNIT TABLET PO SCH (09:30)
[2021-02-15] MEDS: SPIRONOLACTONE 25 MG TABLET PO SCH (09:30)
[2021-02-15] MEDS: CYANOCOBALAMIN 500 MCG TABLET PO SCH (09:30)
--- NOTE | 2021-02-15 09:30 | NUR ---
RN NOTE: ANXIETY AND AGITATION PT EXHIBITING INCREASED ANXIETY AND AGITATION. YELLING OUT, "MOMMY, MOMMY, MOMMY". UNABLE TO BE REDIRECTED AND REASSURED. MEDICATED WITH ATIVAN 0.5 MG PO PRN
[2021-02-15] MEDS: CLOTRIMAZOLE 1% 15 GM TUBE TP SCH ×2 (09:40→16:53)
--- NOTE | 2021-02-15 12:30 | NUR ---
RN-CO: DR PRADHAN NOTIFIED REGARDING PT'S CONFUSION ( NOT GETTING BETTER) REQUESTED FOR AN ORDER FOR UA. AWAITING TO CALL BACK.
[2021-02-15 16:25] VITALS: BP 136/54
--- NOTE | 2021-02-15 16:30 | NUR ---
RN NOTE: STRAIGHT CATH DONE. UA SENT TO LAB
[2021-02-15 20:00] VITALS: BP 145/92
--- NOTE | 2021-02-15 21:17 | NUR ---
MARTHA/RN PATIENT IS VERY AGITATED AT THIS TIME, VERY CONFUSED, SHOUTING/YELLING "HELP, NEED MORE HELP", ATIVAN PO WAS GIVEN ORDERED. WILL MONITOR.
--- NOTE | 2021-02-15 22:42 | NUR ---
GPS/RN PATIENT TRANSFERRED BACK TO BED, SLEEPING, NO SIGNS OF DISTRESS NOTED. WILL CONTINUE TO MONITOR.
[2021-02-15 22:51] LABS: BILIRUBIN,URINE NEGATIVE (NEGATIVE); COLOR,URINE YELLOW (YELLOW); LEUKOCYTE ESTERASE ,URINE LARGE (NEGATIVE); NITRITE, URINE NEGATIVE (NEGATIVE); PH,URINE 6.5 (5.0-8.0); PROTEIN,URINE TRACE mg/dl (NEGATIVE); UGLUCOSE NEGATIVE (NEGATIVE); UROBILINOGEN,URINE 0.2 EU/dL (0.2)
[2021-02-15] MEDS: TEMAZEPAM 7.5 MG CAPSULE PO PRN (22:56)
--- NOTE | 2021-02-15 23:01 | NUR ---
GPS/TELE PATIENT IS AWAKE, AGITATED, TRYING TO GET OUT OF BED, TEMAZEPAM 7.5 MG PO WAS GIVEN ORDERED. WILL MONITOR.
[2021-02-15 23:37] LABS: RBC,URINE 51-80 /HPF (0-2); WBC,URINE TOO NUMEROUS TO COUN /HPF (0-3)
[2021-02-15 23:38] LABS: BACTERIA,URINE Many /HPF (None Seen); SQUAMOUS EPITHELIAL CELL,UR Few /HPF (None Seen)
[2021-02-16 07:57] LABS: ALBUMIN 3.7 g/dL (3.4-5.0); BILIRUBIN,TOTAL 0.2 mg/dL (0.2-1.0); CALCIUM, SERUM 8.6 mg/dL (8.5-10.1); CREATININE 0.7 mg/dL (0.6-1.3); TOTAL PROTEIN, SERUM 6.6 g/dL (6.4-8.2)
[2021-02-16 08:00] VITALS: BP 153/98
[2021-02-16] MEDS: DIVALPROEX SODIUM 125 MG CAP.SPRINK PO SCH (08:16)
[2021-02-16] MEDS: SPIRONOLACTONE 25 MG TABLET PO SCH (08:17)
[2021-02-16] MEDS: ASPIRIN 81 MG TAB.CHEW PO SCH (08:17)
[2021-02-16] MEDS: OLANZAPINE 2.5 MG TABLET PO SCH ×2 (08:17→16:57)
[2021-02-16] MEDS: CHOLECALCIFEROL (VITAMIN D 3) 400 UNIT TABLET PO SCH (08:17)
[2021-02-16] MEDS: CYANOCOBALAMIN 500 MCG TABLET PO SCH (08:17)
[2021-02-16] MEDS: LORAZEPAM 0.5 MG TABLET PO PRN (08:17)
[2021-02-16] MEDS: CARVEDILOL 6.25 MG TABLET PO SCH ×2 (08:18→16:57)
[2021-02-16] MEDS: AMLODIPINE BESYLATE 5 MG TABLET PO SCH (08:18)
[2021-02-16] MEDS: CINACALCET HCL 30 MG TABLET PO SCH (08:19)
[2021-02-16] MEDS: PANTOPRAZOLE 40 MG TABLET.DR PO SCH (08:21)
[2021-02-16] MEDS: CLOTRIMAZOLE 1% 15 GM TUBE TP SCH ×2 (08:22→17:43)
[2021-02-16] MEDS: Z GUARD REMEDY 2 OZ OINT TP SCH (08:22)
--- NOTE | 2021-02-16 09:00 | NUR ---
RN NOTE- YELLING SCREAMING. ATIVAN 0.5 MG GIVEN
[2021-02-16] MEDS ORDERED: SULFAMETH/TRIMETH 800/160 MG 1 UDTAB TABLET PO SCH (10:00)
[2021-02-16] MEDS: NITROFURANTOIN/NITROFURAN MONOHYDRATE 100 MG CAPSULE PO SCH ×3 (10:17→21:38)
--- NOTE | 2021-02-16 10:54 | NUR ---
D/C Planning Update: SW was contacted by Radha at [facility] ([address], [place] [address]; [phone]) and was informed that the pt has been accepted. Radha asked SW if a D/C date has been determined. SS will F/U with Radha once a D/C date has been confirmed. Radha instructed SS to fax Form 602, chest x-ray and rapid Covid test to [phone] prior to D/C.
[2021-02-16] MEDS: ENSURE ENLIVE 237 ML LIQUID (VANILLA) PO SCH ×2 (11:32→17:43)
[2021-02-16 16:00] VITALS: BP 144/73
[2021-02-16] MEDS ORDERED: LORAZEPAM INJ 2 MG/ML VIAL IM STA (17:49)
[2021-02-16] MEDS ORDERED: OLANZAPINE 10 MG VIAL IM STA (17:50)
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
--- NOTE | 2021-02-16 19:30 | NUR ---
GPS RN NOTE Patient currently sitting in a stefan chair in the hallway. Patient's in no acute distress at this time. Will continue to monitor the patient.
[2021-02-16 20:00] VITALS: BP 101/77
--- NOTE | 2021-02-16 21:00 | NUR ---
GPS RN NOTE Patient refused her Macrobid scheduled for 2100.
[2021-02-17 08:00] VITALS: BP 146/76
[2021-02-17] MEDS: CHOLECALCIFEROL (VITAMIN D 3) 400 UNIT TABLET PO SCH (08:17)
[2021-02-17] MEDS: DIVALPROEX SODIUM 125 MG CAP.SPRINK PO SCH ×3 (08:17→16:15)
[2021-02-17] MEDS: ASPIRIN 81 MG TAB.CHEW PO SCH (08:17)
[2021-02-17] MEDS: CYANOCOBALAMIN 500 MCG TABLET PO SCH (08:17)
[2021-02-17] MEDS: AMLODIPINE BESYLATE 5 MG TABLET PO SCH (08:17)
[2021-02-17] MEDS: LORAZEPAM 0.5 MG TABLET PO PRN ×2 (08:18→16:15)
[2021-02-17] MEDS: CARVEDILOL 6.25 MG TABLET PO SCH ×2 (08:18→16:15)
[2021-02-17] MEDS: SPIRONOLACTONE 25 MG TABLET PO SCH (08:18)
[2021-02-17] MEDS: CINACALCET HCL 30 MG TABLET PO SCH (08:18)
[2021-02-17] MEDS: PANTOPRAZOLE 40 MG TABLET.DR PO SCH (08:18)
[2021-02-17] MEDS: OLANZAPINE 2.5 MG TABLET PO SCH ×2 (08:18→16:15)
[2021-02-17] MEDS: NITROFURANTOIN/NITROFURAN MONOHYDRATE 100 MG CAPSULE PO SCH ×2 (08:18→21:32)
[2021-02-17] MEDS: ENSURE ENLIVE 237 ML LIQUID (VANILLA) PO SCH ×2 (08:19→16:16)
--- NOTE | 2021-02-17 08:19 | NUR ---
RN NOTE: ANXIETY AND AGITATION RECEIVED PT YELLING AND SCREAMING. UNABLE TO BE REDIRECTED. CONFUSED AND DISORIENTED. MEDICATED WITH ATIVAN 0.5 MG PO PRN. WILL CONT TO MONITOR EFFECTIVENESS OF PRN MEDICATION
[2021-02-17] MEDS: CLOTRIMAZOLE 1% 15 GM TUBE TP SCH ×2 (09:11→16:16)
[2021-02-17] MEDS: Z GUARD REMEDY 2 OZ OINT TP SCH (09:12)
[2021-02-17 16:00] VITALS: BP 124/80
--- NOTE | 2021-02-17 16:16 | NUR ---
RN NOTE: ANXIETY AND AGITATION PT AGITATED AND YELLING. ATTEMPTING TO BITE STAFF IN SHOWER. MEDICATED WITH ATIVAN 0.5 MG PO PRN
--- NOTE | 2021-02-17 19:57 | NUR ---
GPS RN NOTES RECEIVED ON SUKUMAR CHAIR,A/O X1 CONFUSED,UNPREDICTABLE.DISORGANIZED,FALL RISK,FALL PRECAUTION OBSERVED,CRUSH MEDS WITH APPLE SAUCE.COMBATIVE AT TIMES.WILL CONTINUE TO MONITOR BEHAVIOR
[2021-02-17 20:00] VITALS: BP 115/65
[2021-02-17 21:36] VITALS: BP 103/65
[2021-02-17] MEDS: TEMAZEPAM 7.5 MG CAPSULE PO PRN (22:03)
--- NOTE | 2021-02-17 22:03 | NUR ---
GPS RN NOTES IN THE DINING ROOM,DUE SLEEPING PILL GIVEN ORDERED.
--- NOTE | 2021-02-18 00:30 | NUR ---
GPS RN NOTES IN ROOM SLEEPING TO HER BED THIS TIME.FALL PRECAUTION OBSERVED.BED ALARM ON,WITH BED ON LOWEST POSITION AND LOCKED FOR SAFETY
--- NOTE | 2021-02-18 01:30 | NUR ---
GPS RN NOTES AWAKE,TRYING TO GET OUT OF BED,COMBATIVE,SCREAM,TRYING TO BIT SENIOR VICE PRESIDENT ASHLEY.WAS PLACE ON SUKUMAR FOR SAFETY.
[2021-02-18] MEDS: LORAZEPAM 0.5 MG TABLET PO PRN (03:23)
--- NOTE | 2021-02-18 03:29 | NUR ---
GPS RN NOTES SITTING ON SUKUMAR CHAIR IN THEDINING ROOM SCREAMING,TALKING TO SELF.MEDICATED WITH ATIVAN 0.5MG PO ORDERED FOR AGITATION
[2021-02-18 08:00] VITALS: BP 137/65
[2021-02-18] MEDS: CYANOCOBALAMIN 500 MCG TABLET PO SCH (08:17)
[2021-02-18] MEDS: NITROFURANTOIN/NITROFURAN MONOHYDRATE 100 MG CAPSULE PO SCH ×2 (08:17→21:34)
[2021-02-18] MEDS: PANTOPRAZOLE 40 MG TABLET.DR PO SCH (08:17)
[2021-02-18] MEDS: CINACALCET HCL 30 MG TABLET PO SCH (08:17)
[2021-02-18] MEDS: DIVALPROEX SODIUM 125 MG CAP.SPRINK PO SCH ×3 (08:17→16:50)
[2021-02-18] MEDS: ASPIRIN 81 MG TAB.CHEW PO SCH (08:17)
[2021-02-18] MEDS: CHOLECALCIFEROL (VITAMIN D 3) 400 UNIT TABLET PO SCH (08:18)
[2021-02-18] MEDS: AMLODIPINE BESYLATE 5 MG TABLET PO SCH (08:18)
[2021-02-18] MEDS: CARVEDILOL 6.25 MG TABLET PO SCH ×2 (08:19→16:51)
[2021-02-18] MEDS: SPIRONOLACTONE 25 MG TABLET PO SCH (08:19)
[2021-02-18] MEDS: ENSURE ENLIVE 237 ML LIQUID (VANILLA) PO SCH ×2 (08:24→16:51)
[2021-02-18] MEDS: OLANZAPINE 2.5 MG TABLET PO SCH ×3 (08:26→16:50)
[2021-02-18] MEDS: CLOTRIMAZOLE 1% 15 GM TUBE TP SCH ×2 (08:49→16:59)
[2021-02-18] MEDS: Z GUARD REMEDY 2 OZ OINT TP SCH (08:50)
--- NOTE | 2021-02-18 12:22 | NUR ---
Probable Cause Hearing: Pt's 5250 hold upheld on the grounds of grave disability.
[2021-02-18 16:00] VITALS: BP 141/83
[2021-02-18 20:00] VITALS: BP 109/69
[2021-02-18] MEDS: TEMAZEPAM 7.5 MG CAPSULE PO PRN (21:34)
[2021-02-19 08:00] VITALS: BP 125/77
[2021-02-19] MEDS: NITROFURANTOIN/NITROFURAN MONOHYDRATE 100 MG CAPSULE PO SCH ×2 (08:59→21:06)
[2021-02-19] MEDS: OLANZAPINE 2.5 MG TABLET PO SCH ×3 (08:59→17:19)
[2021-02-19] MEDS: CYANOCOBALAMIN 500 MCG TABLET PO SCH (08:59)
[2021-02-19] MEDS: ASPIRIN 81 MG TAB.CHEW PO SCH (08:59)
[2021-02-19] MEDS: DIVALPROEX SODIUM 125 MG CAP.SPRINK PO SCH ×3 (09:01→17:19)
[2021-02-19] MEDS: CHOLECALCIFEROL (VITAMIN D 3) 400 UNIT TABLET PO SCH (09:01)
[2021-02-19] MEDS: CINACALCET HCL 30 MG TABLET PO SCH (09:01)
[2021-02-19] MEDS: PANTOPRAZOLE 40 MG TABLET.DR PO SCH (09:02)
[2021-02-19] MEDS: SPIRONOLACTONE 25 MG TABLET PO SCH (09:02)
[2021-02-19] MEDS: AMLODIPINE BESYLATE 5 MG TABLET PO SCH (09:02)
[2021-02-19] MEDS: ENSURE ENLIVE 237 ML LIQUID (VANILLA) PO SCH ×2 (09:03→17:23)
[2021-02-19] MEDS: CARVEDILOL 6.25 MG TABLET PO SCH ×2 (09:05→17:20)
[2021-02-19] MEDS: CLOTRIMAZOLE 1% 15 GM TUBE TP SCH ×2 (09:51→17:22)
[2021-02-19] MEDS: Z GUARD REMEDY 2 OZ OINT TP SCH (09:51)
[2021-02-19] MEDS: LORAZEPAM 0.5 MG TABLET PO PRN (10:38)
--- NOTE | 2021-02-19 10:38 | NUR ---
RN-NOTES NOTED PATIENT WITH CONTINUOS SCREAMING AND YELLING, UNABLE TO REDIRECT. ATIVAN 0.5MG P.O GIVEN PRN ORDER. WILL CONT. MONITORING FOR SAFETY AND BEHAVIOR.
--- NOTE | 2021-02-19 11:30 | NUR ---
RN-NOTES PATIENT STILL IN THE DAY ROOM INTERMITTENTLY SLEEPING,NO ACUTE DISTRESS NOTED.
--- NOTE | 2021-02-19 15:51 | NUR ---
D/C Planning Update: SW notified by psychiatrist that he feels pt. is ready for discharge on Monday02/23/2021 to [facility] ([address] [place] [address]; [phone]). SW called facility and spoke with Ifeoma who stated that they can pickler helper the pt. on 02/23/2021 at 10: 30 am. Noted. Facility requesting : PCR Covid test, chest x ray, and Form 602. LEO called pt.'s daughter, Dina Suarez [phone] to discuss D/C on monday to [place]. Dina stated she is just concerned because the culture for antibiotic resistance regarding UTI is not back and she wants to make sure the pt. is receiving appropriate antibiotics. Dina stated if the psychiatrist is ok with D/C pt. then she is agreeable. LEO called Dr. Griffin and discussed D/C relayed family concerns. Dr. Griffin stated he feels confident pt. can be discharge don 02/23/2021. Noted. LEO confirmed D/C with [facility] [facility] and will continue D/C planning.
[2021-02-19 16:00] VITALS: BP 110/70
[2021-02-19 20:40] VITALS: BP_SYST 101; BP_SYST 99; BP_DIAS 54; BP_DIAS 60
[2021-02-19] MEDS: ACETAMINOPHEN 325 MG TABLET PO PRN (21:15)
[2021-02-19] MEDS: Z GUARD REMEDY 2 OZ OINT TP PRN (21:51)
[2021-02-19] MEDS: TEMAZEPAM 7.5 MG CAPSULE PO PRN (22:19)
--- NOTE | 2021-02-19 22:20 | NUR ---
RN NOTE: INSOMNIA PATIENT IS UNABLE TO SLEEP, RESTLESS, ANXIOUS, LOUD, UNABLE TO REDIRECT AT THIS TIME. PRN RESTORIL 7.5 MG 1 CAP PO ADMINISTERED. SNACK & WATER OFFERED TO THE PATIENT & TOLERATED WELL. WILL CONTINUE TO MONITOR.
[2021-02-20] MEDS: LORAZEPAM 0.5 MG TABLET PO PRN ×2 (03:31→19:58)
--- NOTE | 2021-02-20 03:33 | NUR ---
RN NOTE: ANXIETY PATIENT IS AGITATED, anxious, RESTLESS, CRYING, YELLING LOUD, PRN ATIVAN 0.5 MG 1 TAB PO ADMINISTERED. SNACK GIVEN & TOLERATED WELL. WILL CONTINUE TO MONITOR.
[2021-02-20 08:00] VITALS: BP 126/68
[2021-02-20] MEDS: CYANOCOBALAMIN 500 MCG TABLET PO SCH (08:36)
[2021-02-20] MEDS: OLANZAPINE 2.5 MG TABLET PO SCH ×3 (08:36→17:27)
[2021-02-20] MEDS: ENSURE ENLIVE 237 ML LIQUID (VANILLA) PO SCH ×2 (08:36→17:27)
[2021-02-20] MEDS: CHOLECALCIFEROL (VITAMIN D 3) 400 UNIT TABLET PO SCH (08:36)
[2021-02-20] MEDS: PANTOPRAZOLE 40 MG TABLET.DR PO SCH (08:36)
[2021-02-20] MEDS: DIVALPROEX SODIUM 125 MG CAP.SPRINK PO SCH ×3 (08:36→17:27)
[2021-02-20] MEDS: ASPIRIN 81 MG TAB.CHEW PO SCH (08:36)
[2021-02-20] MEDS: CINACALCET HCL 30 MG TABLET PO SCH (08:36)
[2021-02-20] MEDS: NITROFURANTOIN/NITROFURAN MONOHYDRATE 100 MG CAPSULE PO SCH ×2 (08:36→20:53)
[2021-02-20] MEDS: CARVEDILOL 6.25 MG TABLET PO SCH ×2 (08:37→17:27)
[2021-02-20] MEDS: AMLODIPINE BESYLATE 5 MG TABLET PO SCH (08:37)
[2021-02-20] MEDS: SPIRONOLACTONE 25 MG TABLET PO SCH (08:37)
[2021-02-20] MEDS: Z GUARD REMEDY 2 OZ OINT TP SCH (08:39)
[2021-02-20] MEDS: CLOTRIMAZOLE 1% 15 GM TUBE TP SCH ×2 (08:39→17:34)
[2021-02-20 16:00] VITALS: BP 130/85
[2021-02-20] MEDS: ACETAMINOPHEN 325 MG TABLET PO PRN (17:51)
--- NOTE | 2021-02-20 17:52 | NUR ---
RN-NOTES PATIENT IN THE DAY ROOM WITH HER DTR TOM, NOTED WITH A EPISODE OF GRIMACING AND MOANING .DTR REQUESTING TO GIVE TYLENOL . TYLENOL 650MG P.O GIVEN PRN ORDER.
--- NOTE | 2021-02-20 18:30 | NUR ---
RN-NOTES PATIENT STILL IN THE DAY ROOM UP IN THE SUKUMAR CHAIR AWAKE,ALERT CALM,NO ACUTE DISTRESS NOTED. WILL ENDORSE TO INCOMING NURSE FOR CONTINUITY OF CARE AND MONITORING.
[2021-02-20 20:25] VITALS: BP 119/72
[2021-02-20] MEDS: TEMAZEPAM 7.5 MG CAPSULE PO PRN (20:53)
[2021-02-21 08:00] VITALS: BP 137/79
[2021-02-21] MEDS: Z GUARD REMEDY 2 OZ OINT TP SCH (08:44)
[2021-02-21] MEDS: SPIRONOLACTONE 25 MG TABLET PO SCH (08:47)
[2021-02-21] MEDS: PANTOPRAZOLE 40 MG TABLET.DR PO SCH (08:47)
[2021-02-21] MEDS: ASPIRIN 81 MG TAB.CHEW PO SCH (08:47)
[2021-02-21] MEDS: CHOLECALCIFEROL (VITAMIN D 3) 400 UNIT TABLET PO SCH (08:47)
[2021-02-21] MEDS: OLANZAPINE 2.5 MG TABLET PO SCH ×3 (08:48→18:00)
[2021-02-21] MEDS: CYANOCOBALAMIN 500 MCG TABLET PO SCH (08:48)
[2021-02-21] MEDS: CARVEDILOL 6.25 MG TABLET PO SCH ×2 (08:48→18:01)
[2021-02-21] MEDS: NITROFURANTOIN/NITROFURAN MONOHYDRATE 100 MG CAPSULE PO SCH ×2 (08:48→21:27)
[2021-02-21] MEDS: CINACALCET HCL 30 MG TABLET PO SCH (08:48)
[2021-02-21] MEDS: DIVALPROEX SODIUM 125 MG CAP.SPRINK PO SCH ×3 (08:48→18:00)
[2021-02-21] MEDS: AMLODIPINE BESYLATE 5 MG TABLET PO SCH (08:49)
[2021-02-21] MEDS: ENSURE ENLIVE 237 ML LIQUID (VANILLA) PO SCH ×2 (08:49→17:58)
[2021-02-21] MEDS: CLOTRIMAZOLE 1% 15 GM TUBE TP SCH ×2 (08:51→17:58)
[2021-02-21 16:00] VITALS: BP 119/77
[2021-02-21 20:32] VITALS: BP 142/78
[2021-02-21] MEDS: ACETAMINOPHEN 325 MG TABLET PO PRN (21:27)
--- NOTE | 2021-02-21 21:28 | NUR ---
GPS RN NOTES: TYLENOL 650MG GIVEN PO PRN FOR LOWER BACK PAIN AT 2126. WILL WILL CONTINUE TO MONITOR.
[2021-02-21] MEDS: TEMAZEPAM 7.5 MG CAPSULE PO PRN (22:03)
--- NOTE | 2021-02-21 22:05 | NUR ---
GPS RN NOTES: RESTORIL 7.5MG/1CAP GIVEN PO PRN AT 2203 D/T INSOMNIA. WILL CONTINUE TO MONITOR.
--- NOTE | 2021-02-22 06:02 | NUR ---
GPS RN NOTES: PATIENT WEEKLY SKIN ASSESSMENT DONE, PICTURES TAKEN AND PLACED IN PATIENT CHART. NO NEW SKIN ISSUES NOTED.
--- NOTE | 2021-02-22 07:30 | NUR ---
PT RECEIVED RESTING COMFORTABLY IN GERICHAIR. NO S/S OR C/O PAIN OR DISTRESS NOTED. SIDE RAILS UP X2, CALL LIGHT LEFT WITHIN REACH. WILL CONTINUE PLAN OF CARE.
[2021-02-22 08:00] VITALS: BP 124/78
[2021-02-22] MEDS: CYANOCOBALAMIN 500 MCG TABLET PO SCH (08:16)
[2021-02-22] MEDS: ASPIRIN 81 MG TAB.CHEW PO SCH (08:16)
[2021-02-22] MEDS: CINACALCET HCL 30 MG TABLET PO SCH (08:16)
[2021-02-22] MEDS: OLANZAPINE 2.5 MG TABLET PO SCH ×3 (08:16→17:53)
[2021-02-22] MEDS: SPIRONOLACTONE 25 MG TABLET PO SCH (08:16)
[2021-02-22] MEDS: CHOLECALCIFEROL (VITAMIN D 3) 400 UNIT TABLET PO SCH (08:16)
[2021-02-22] MEDS: DIVALPROEX SODIUM 125 MG CAP.SPRINK PO SCH ×3 (08:16→17:53)
[2021-02-22] MEDS: NITROFURANTOIN/NITROFURAN MONOHYDRATE 100 MG CAPSULE PO SCH ×2 (08:16→21:17)
[2021-02-22] MEDS: PANTOPRAZOLE 40 MG TABLET.DR PO SCH (08:16)
[2021-02-22] MEDS: AMLODIPINE BESYLATE 5 MG TABLET PO SCH (08:17)
[2021-02-22] MEDS: CARVEDILOL 6.25 MG TABLET PO SCH ×2 (08:17→17:53)
[2021-02-22] MEDS: ENSURE ENLIVE 237 ML LIQUID (VANILLA) PO SCH ×2 (08:17→17:54)
[2021-02-22] MEDS: Z GUARD REMEDY 2 OZ OINT TP SCH (08:18)
[2021-02-22] MEDS: CLOTRIMAZOLE 1% 15 GM TUBE TP SCH ×2 (08:18→17:54)
[2021-02-22 16:00] VITALS: BP 132/81
[2021-02-22] MEDS: LORAZEPAM 0.5 MG TABLET PO PRN (17:52)
[2021-02-22 19:50] VITALS: BP 125/73
[2021-02-22] MEDS: Z GUARD REMEDY 2 OZ OINT TP PRN (19:51)
[2021-02-22] MEDS: ACETAMINOPHEN 325 MG TABLET PO PRN (20:14)
--- NOTE | 2021-02-22 20:15 | NUR ---
RN NOTE: PAIN PATIENT C/O GENERALIZED BODY PAIN, UNABLE TO SCALE DUE TO CONFUSION. PRN TYLENOL 650 MG PO ADMINISTERED. WILL CONTINUE TO MONITOR.
--- NOTE | 2021-02-22 20:46 | NUR ---
RN NOTE PATIENT NOTED TO BE TIRED & ASSISTED BACK TO BED, PERINEAL CARE PROVIDED, KEPT CLEAN & DRY. PATIENT GOT AGITATED DURING CARE, RESISTIVE TO TURN & REPOSITION, ATTEMPTED TO KICK THE STAFF. REDIRECTIONS PROVIDED, BED ALARM ON. WILL CONTINUE TO MONITOR.
--- NOTE | 2021-02-22 20:57 | NUR ---
RN NOTE: UNCOOPERATIVE BEHAVIOR PATIENT ONLY RESTED IN BED FOR ABOUT 30 MINUTES, KEEPS ATTEMPTING TO GET OUT OF BED, DANGLING LEGS OUT OF BED, PATIENT IS VERY RESTLESS & SEEN IN KNEE CHEST POSITION IN BED MULTIPLE TIMES EVEN AFTER ASSISTING HER TO SUPINE OR LATERAL POSITION. PATIENT IS UNABLE TO FOLLOW DIRECTIONS & UNCOOPERATIVE TO STAY IN BED. PATIENT WAS PROVIDED PERINEAL CARE AGAIN DUE TO BEING WET, SKIN CREAM APPLIED. PATIENT WAS ASSISTED BACK TO [facility]AIR FOR SAFETY & FALL PREVENTION.
[2021-02-22] MEDS: TEMAZEPAM 7.5 MG CAPSULE PO PRN (22:44)
--- NOTE | 2021-02-22 22:45 | NUR ---
RN NOTE: INSOMNIA PATIENT IS UNABLE TO SLEEP, RESTLESS, ANXIOUS, CRYING LOUD, UNABLE TO REDIRECT AT THIS TIME. PRN RESTORIL 7.5 MG 1 CAP PO ADMINISTERED. WILL CONTINUE TO MONITOR.
--- NOTE | 2021-02-23 06:54 | NUR ---
RN NOTE PATIENT WAS ASSISTED BACK TO BED AT NIGHT & PATIENT SLEPT WELL. GOOD PERINEAL CARE PROVIDED. KEPT CLEAN & DRY. PATIENT WAS ABLE TO TURN/REPOSITION IN BED INDEPENDENTLY. WILL ENDORSE TO AM RN FOR CONTINUITY OF CARE.
[2021-02-23 08:00] VITALS: BP 124/74
--- NOTE | 2021-02-23 09:00 | NUR ---
RN-CO: DR CHIN, COVERING FOR DR OSPINA GAVE AN ORDER TO DISCONTINUE HOLD AND DISCHARGE PATIENT TO [facility]. DR KAYLEIGH PRADHAN MEDICALLY CLEARED PATIENT FOR DISCHARGE AND ORDERED TO CONTINUE ROUTINE MEDS AND D/C ANTIBIOTIC. NOTED AND CARRIED OUT.
[2021-02-23] MEDS: ENSURE ENLIVE 237 ML LIQUID (VANILLA) PO SCH (09:20)
[2021-02-23] MEDS: Z GUARD REMEDY 2 OZ OINT TP SCH (09:21)
[2021-02-23] MEDS: CLOTRIMAZOLE 1% 15 GM TUBE TP SCH (09:21)
[2021-02-23] MEDS: PANTOPRAZOLE 40 MG TABLET.DR PO SCH (09:29)
[2021-02-23] MEDS: SPIRONOLACTONE 25 MG TABLET PO SCH (09:29)
[2021-02-23] MEDS: ASPIRIN 81 MG TAB.CHEW PO SCH (09:29)
[2021-02-23] MEDS: CARVEDILOL 6.25 MG TABLET PO SCH (09:29)
[2021-02-23] MEDS: CYANOCOBALAMIN 500 MCG TABLET PO SCH (09:29)
[2021-02-23 09:30] VITALS: BP 124/74
[2021-02-23] MEDS: AMLODIPINE BESYLATE 5 MG TABLET PO SCH (09:30)
[2021-02-23] MEDS: CINACALCET HCL 30 MG TABLET PO SCH (09:30)
[2021-02-23] MEDS: CHOLECALCIFEROL (VITAMIN D 3) 400 UNIT TABLET PO SCH (09:30)
[2021-02-23] MEDS: DIVALPROEX SODIUM 125 MG CAP.SPRINK PO SCH (09:30)
[2021-02-23] MEDS: OLANZAPINE 2.5 MG TABLET PO SCH (09:30)
[2021-02-23] MEDS: NITROFURANTOIN/NITROFURAN MONOHYDRATE 100 MG CAPSULE PO SCH (09:30)
--- NOTE | 2021-02-23 10:10 | NUR ---
D/C Note: Pt. will be discharged to [facility] ([address] [place] [address]; [phone]) on 02/23/2021. [facility] will be providing transportation at 10:30 am. Pt.s daughter, Dina Suarez [phone], was notified of D/C and is agreeable to plan. Currently, the pt. appears to be confused, forgetful and A&O X1. Pt. has Hx. of Dementia. Pt. walks with walker & 1 person assist and needs max assist with ADLs. Pt. will be under the care of a psychiatrist: Nelson Reyes MD and low pressure kettle operator:Chip Hicham MD at [facility]. The choice of vendor form and multidisciplinary exit care form were done, printed, signed, and given to the patient.
--- NOTE | 2021-02-23 10:12 | NUR ---
S-S NOTE: faxed Form 602, chest x ray & PCR COVID test results to [facility] fax: [phone]
--- NOTE | 2021-02-23 11:05 | NUR ---
PT DISCHARGED TO [facility]. TRANSPORTATION PROVIDED BY [facility]. PT'S DAUGHTER JANES PISANO PRESENT AT TIME OF DISCHARGE. PT DRESSED WITH OWN CLOTHING. PT IS CONFUSED AT PRESENT. A&O X1. NO SIGNS OF DISTRESS AT PRESENT. EXIT CARE FORM COMPLETED PRINTED, SIGNED AND GIVEN TO [facility] STAFF ALONG WITH MEDICAL AND PSYCH MED RECON. BELONGINGS RETURNED. PT WEARING LANCE RING. PT ESCORTED VIA WHEELCHAIR TO MAIN LOBBY BY STAFF.
== END 2021-02-23 11:05 | DRG 885 ==
LOC: GPS 00:49
PROVIDERS: ADMIT Psychiatry & Neurology Psychiatry; ATTEND Nurse Practitioner Acute Care
DX: F39 Unspecified mood [affective] disorder (principal); N17.0 Acute kidney failure with tubular necrosis; N18.9 Chronic kidney disease, unspecified; F03.91 Unspecified dementia, unspecified severity, with behavioral disturbance; N39.0 Urinary tract infection, site not specified; G93.49 Other encephalopathy; I10 Essential (primary) hypertension; F29 Unspecified psychosis not due to a substance or known physiological condition; E21.3 Hyperparathyroidism, unspecified; F41.9 Anxiety disorder, unspecified; I12.9 Hypertensive chronic kidney disease with stage 1 through stage 4 chronic kidney disease, or unspecified chronic kidney disease; Z73.6 Limitation of activities due to disability; R53.1 Weakness; R27.8 Other lack of coordination; Z91.81 History of falling; E86.0 Dehydration
CPT/HCPCS: 36415; 71045-TC; 80048-TC; 80053-TC; 80061-TC; 80164-TC; 81001; 82962-TC; 83735-TC; 83970; 84100-TC; 84443-TC; 85025-TC; 87086-TC; 87186-TC; 97112-TC; 97116-TC; 97530-TC; J2060; J3490; U0003